=== PATIENT | female | born 1995 ===

== ENCOUNTER 2017-06-12 05:42 | Inpatient (IN) ==
[2017-06-12] MEDS ORDERED: ONDANSETRON 4 MG/2 ML VIAL IV PRN (05:54)
[2017-06-12] MEDS ORDERED: MEPERIDINE 50 MG/1 ML VIAL IV PRN (05:54)
[2017-06-12 06:26] LABS: Basophils % 0.2 % (0.0-0.8); Eosinophils # 0.1 10*3/uL (0.0-0.87); Eosinophils % 0.6 % (0.00-10.9); Hematocrit 36.6 VOL% (35.7-47.0); Hemoglobin 12.2 GM/DL (12.0-16.0); Immature Granulocytes % 0.6 %; Immature Granulocytes Absolute 0.06 #; Lymphocytes # 2.1 10*3/uL (1.4-4.0); Lymphocytes % 22.8 % (21.3-54.2); Mean Corpuscular HGB Conc 33.3 GM/DL (32-36); Mean Corpuscular Hemoglobin 27 PG (27-34); Mean Corpuscular Volume 80.3 FL (87-102); Mean Platelet Volume 12.7 FL (9.6-12.0); Monocytes # 0.5 10*3/uL (0.11-0.8); Monocytes % 5.1 % (1.7-12.7); Neutrophils # 6.6 10*3/uL (1.4-7.4); Neutrophils % 70.7 % (38.7-73.9); Platelet Count 149 T/CUMM (130-400); Red Blood Count 4.56 MC/CUMM (3.8-5.5); Red Cell Distribution Width 13.4 % (9.3-17.3); White Blood Count 9.4 T/CUMM (4-12)
[2017-06-12] MEDS: OXYTOCIN/LR 20 UNIT/1,000 ML BAG IV SCH ×2 (06:37→20:25)
[2017-06-12] MEDS: LACTATED RINGERS 1,000 ML IV SCH ×3 (06:37→13:22)
[2017-06-12 06:56] LABS: Alanine Aminotransferase 13 U/L (13-56); Albumin 2.4 G/DL (3.4-5.0); Alkaline Phosphatase 184 U/L (45-117); Aspartate Amino Transferase 14 U/L (0-37); Bilirubin,Total < 0.39 MG/DL (0.2-1.0); Blood Urea Nitrogen 11 MG/DL (7-18); Calcium 8.7 MG/DL (8.5-10.1); Glucose 105 MG/DL (74-106); Osmolality,Calculated 273.7 MOS/KG (273-304); Potassium 3.7 MMOL/L (3.5-5.1); Sodium 138 MMOL/L (136-145); Total Protein 6.8 G/DL (6.4-8.3)
[2017-06-12] MEDS: BUTORPHANOL 2 MG/ML VIAL IV PRN ×2 (09:32→12:27)
[2017-06-12] MEDS ORDERED: PROMETHAZINE 25 MG/1 ML VIAL IM ONE (09:38)
[2017-06-12] MEDS ORDERED: FAMOTIDINE 20 MG/2 ML VIAL IV ONE (09:38)
[2017-06-12] MEDS ORDERED: hydrOXYzine HCL 25 MG/1 ML VIAL IM PRN (09:38)
[2017-06-12] MEDS ORDERED: CITRIC ACID/SODIUM CITRATE 30 ML UDCUP PO ONE (09:38)
[2017-06-12] MEDS ORDERED: ePHEDrine 50 MG/ML AMP IV PRN (09:38)
[2017-06-12] MEDS ORDERED: diphenhydrAMINE 50 MG/1 ML VIAL IV PRN ×2 (09:38)
[2017-06-12] MEDS ORDERED: fentaNYL 2 MCG/ROPIV 0.2% EPID 150 ML EPIDURAL SCH (10:00)
[2017-06-12 17:05] LABS: Apearance,Urine CLEAR (Clear); Bilirubin,Urine Negative (Negative); Blood, Urine Negative (Negative); Glucose,Urine (UA) Negative (Negative); Ketones,Urine 5 mg/dL (Negative); Mucus,Urine Occasional /LPF (Occasional); Nitrite,Urine Negative (Negative); Protein,Urine Negative; RBC,Urine <1 /HPF (0-4); Urine Color Yellow (Yellow); Urine Specific Gravity 1.012 (1.001-1.035); Urine Urobilinogen < 2.0 EU/DL (0.2-1.0); WBC,Urine <1 /HPF (0-6)
[2017-06-12] MEDS ORDERED: METHYLERGONOVINE 0.2 MG/1 ML AMP ONE (21:48)
[2017-06-12 22:38] LABS: Cord Arterial Blood HCO3 24.8 MMOL/L
[2017-06-12 22:40] LABS: Cord Venous Blood HCO3 21.4 MMOL/L; Cord Venous Blood PCO2 40.5 MMHG; Cord Venous Blood PO2 37.3
[2017-06-13] MEDS ORDERED: OXYTOCIN/LR 30 UNIT/1,000 ML BAG IV ONE (00:35)
[2017-06-13] MEDS ORDERED: DIPH/TET/ACEL PERT BOOSTER VACCINE 0.5 ML VIAL IM ONE (00:49)
[2017-06-13] MEDS ORDERED: BENZOCAINE 20%/MENTHOL 0.5% SPRAY 56 GM CAN TOP PRN (00:49)
[2017-06-13] MEDS ORDERED: ACETAMINOPHEN 325 MG TABLET PO PRN (00:49)
[2017-06-13] MEDS ORDERED: WITCH HAZEL PADS 100/JAR TOP PRN (00:49)
[2017-06-13] MEDS ORDERED: RHO(D) IMMUNE GLOBULIN 300 MCG SYRINGE IM ONE (00:49)
[2017-06-13] MEDS ORDERED: BISACODYL 10 MG SUPP RECTAL PRN (00:49)
[2017-06-13] MEDS ORDERED: MEASLES/MUMPS/RUBELLA VACCINE 0.5 ML VIAL SUBCUT ONE (00:49)
[2017-06-13] MEDS ORDERED: LANOLIN 50% CREAM 0.3 OZ TUBE TOP PRN (00:49)
[2017-06-13] MEDS ORDERED: oxyCODONE/ACETAMINOPHEN 5-325 MG TABLET PO PRN (00:49)
[2017-06-13] MEDS ORDERED: ACETAMINOPHEN/CODEINE 300-30 MG TABLET PO PRN (00:49)
[2017-06-13] MEDS ORDERED: HYDROCORTISONE 2.5% RECTAL CREAM 30 GM TUBE TOP PRN (00:49)
[2017-06-13] MEDS: IBUPROFEN 800 MG TABLET PO PRN ×2 (01:02→14:49)
[2017-06-13 06:59] LABS: Basophils % 0.2 % (0.0-0.8); Eosinophils % 0.2 % (0.00-10.9); Hematocrit 30.7 VOL% (35.7-47.0); Hemoglobin 10.4 GM/DL (12.0-16.0); Immature Granulocytes % 0.5 %; Immature Granulocytes Absolute 0.06 #; Lymphocytes # 1.7 10*3/uL (1.4-4.0); Lymphocytes % 13.3 % (21.3-54.2); Mean Corpuscular HGB Conc 33.9 GM/DL (32-36); Mean Corpuscular Hemoglobin 27 PG (27-34); Mean Corpuscular Volume 78.1 FL (87-102); Mean Platelet Volume 12.8 FL (9.6-12.0); Monocytes % 7.4 % (1.7-12.7); Neutrophils # 10.1 10*3/uL (1.4-7.4); Neutrophils % 78.4 % (38.7-73.9); Platelet Count 127 T/CUMM (130-400); Red Blood Count 3.93 MC/CUMM (3.8-5.5); Red Cell Distribution Width 13.4 % (9.3-17.3); White Blood Count 12.9 T/CUMM (4-12)
[2017-06-13] MEDS: DOCUSATE SODIUM 100 MG CAPSULE PO SCH ×2 (09:11→21:28)
[2017-06-14] MEDS: IBUPROFEN 800 MG TABLET PO PRN (07:41)
[2017-06-14] MEDS: oxyCODONE/ACETAMINOPHEN 5-325 MG TABLET PO PRN (07:42)
[2017-06-14] MEDS: DOCUSATE SODIUM 100 MG CAPSULE PO SCH ×2 (08:31→21:52)
[2017-06-15] MEDS: DOCUSATE SODIUM 100 MG CAPSULE PO SCH (08:20)
[2017-06-15] MEDS: IBUPROFEN 800 MG TABLET PO PRN (08:21)
[2017-06-15] MEDS: oxyCODONE/ACETAMINOPHEN 5-325 MG TABLET PO PRN (08:23)
[2017-06-15 08:45] VITALS: BP 113/74
== END 2017-06-15 11:35 | disposition home or self-care (01) | DRG 560 ==
LOC: N.LDOUT 05:42 → N.LD 05:45 → N.OB 06-13 02:35
PROVIDERS: ADMIT Obstetrics & Gynecology; ATTEND Obstetrics & Gynecology

== ENCOUNTER 2018-06-07 16:50 | Inpatient (IN) ==
[2018-06-07] MEDS ORDERED: BUTORPHANOL 2 MG/ML VIAL IV PRN (17:24)
[2018-06-07] MEDS ORDERED: ONDANSETRON 4 MG/2 ML VIAL IV PRN (17:24)
[2018-06-07] MEDS ORDERED: LACTATED RINGERS 1,000 ML IV ONE (17:24)
[2018-06-07] MEDS ORDERED: BUTORPHANOL 2 MG/ML VIAL ONE (17:26)
[2018-06-07] MEDS ORDERED: ONDANSETRON 4 MG/2 ML VIAL ONE (17:26)
[2018-06-07 19:03] LABS: Apearance,Urine CLEAR (Clear); Bilirubin,Urine Negative (Negative); Blood, Urine Negative (Negative); Glucose,Urine (UA) Negative (Negative); Ketones,Urine Negative (Negative); Mucus,Urine Occasional /LPF (Occasional); Nitrite,Urine Negative (Negative); Protein,Urine 100 MG/DL; RBC,Urine 1 /HPF (0-4); Squamous Epithelial Cell,Urine Occasional /HPF (0-10); Urine Color Yellow (Yellow); Urine Specific Gravity 1.021 (1.001-1.035); Urine Urobilinogen < 2.0 EU/DL (0.2-1.0); WBC,Urine 1 /HPF (0-6)
[2018-06-08] MEDS ORDERED: BUTORPHANOL 2 MG/ML VIAL IV PRN (00:05)
[2018-06-08] MEDS ORDERED: MEPERIDINE 50 MG/1 ML VIAL IV PRN (00:05)
[2018-06-08] MEDS ORDERED: ONDANSETRON 4 MG/2 ML VIAL IV PRN (00:05)
[2018-06-08] MEDS ORDERED: LACTATED RINGERS 1,000 ML IV SCH ×2 (00:30→08:30)
[2018-06-08 00:45] LABS: Basophils % 0.4 % (0.0-0.8); Eosinophils # 0.1 10*3/uL (0.0-0.87); Eosinophils % 1.4 % (0.00-10.9); Hematocrit 35.1 VOL% (35.7-47.0); Hemoglobin 11.3 GM/DL (12.0-16.0); Immature Granulocytes % 0.9 %; Immature Granulocytes Absolute 0.09 #; Lymphocytes % 19.5 % (21.3-54.2); Mean Corpuscular HGB Conc 32.2 GM/DL (32-36); Mean Corpuscular Hemoglobin 26 PG (27-34); Mean Corpuscular Volume 80.5 FL (87-102); Mean Platelet Volume 12.9 FL (9.6-12.0); Monocytes # 0.8 10*3/uL (0.11-0.8); Monocytes % 7.3 % (1.7-12.7); Neutrophils # 7.3 10*3/uL (1.4-7.4); Neutrophils % 70.5 % (38.7-73.9); Platelet Count 128 T/CUMM (130-400); Red Blood Count 4.36 MC/CUMM (3.8-5.5); Red Cell Distribution Width 14.5 % (9.3-17.3); White Blood Count 10.3 T/CUMM (4-12)
[2018-06-08 01:01] LABS: INR 0.9; PT Patient Result 9.6 SECS; Partial Thromboplastin Time 29.8 SECS (0-40)
[2018-06-08 01:05] LABS: Alanine Aminotransferase 17 U/L (13-56); Albumin 2.4 G/DL (3.4-5.0); Alkaline Phosphatase 148 U/L (45-117); Aspartate Amino Transferase 18 U/L (0-37); Bilirubin,Total < 0.39 MG/DL (0.2-1.0); Blood Urea Nitrogen 10 MG/DL (7-18); Calcium 8.4 MG/DL (8.5-10.1); Glucose 81 MG/DL (74-106); Osmolality,Calculated 276.4 MOS/KG (273-304); Potassium 3.9 MMOL/L (3.5-5.1); Sodium 140 MMOL/L (136-145); Total Protein 6.7 G/DL (6.4-8.3)
[2018-06-08] MEDS ORDERED: hydrALAZINE 20 MG/1 ML VIAL IV ONE (01:06)
[2018-06-08] MEDS ORDERED: hydrALAZINE 20 MG/1 ML VIAL IV PRN (02:39)
[2018-06-08] MEDS ORDERED: OXYTOCIN/LR 20 UNIT/1,000 ML BAG IV SCH (06:00)
[2018-06-08] MEDS ORDERED: hydrOXYzine HCL 25 MG/1 ML VIAL IM PRN (08:30)
[2018-06-08] MEDS ORDERED: fentaNYL 2 MCG/ROPIV 0.2% EPID 100 ML EPIDURAL SCH (08:30)
[2018-06-08] MEDS ORDERED: NALOXONE 0.4 MG/ML VIAL IV PRN (08:30)
[2018-06-08] MEDS ORDERED: ePHEDrine 50 MG/ML AMP IV PRN (08:30)
[2018-06-08] MEDS ORDERED: ONDANSETRON 4 MG/2 ML VIAL IV ONE (08:30)
[2018-06-08] MEDS ORDERED: diphenhydrAMINE 50 MG/1 ML VIAL IV PRN ×2 (08:30)
[2018-06-08] MEDS ORDERED: CITRIC ACID/SODIUM CITRATE 30 ML UDCUP ONE (08:51)
[2018-06-08] MEDS ORDERED: LIDOCAINE 1% 50 ML VIAL ONE (10:07)
[2018-06-08] MEDS ORDERED: miSOPROStol 200 MCG TABLET ONE (10:07)
[2018-06-08] MEDS ORDERED: METHYLERGONOVINE 0.2 MG/1 ML AMP ONE (10:08)
[2018-06-08] MEDS ORDERED: ACETAMINOPHEN/CODEINE 300-30 MG TABLET PO PRN (14:02)
[2018-06-08] MEDS ORDERED: DIPH/TET/ACEL PERT BOOSTER VACCINE 0.5 ML VIAL IM ONE (14:02)
[2018-06-08] MEDS ORDERED: BENZOCAINE 20%/MENTHOL 0.5% SPRAY 56 GM CAN TOP PRN (14:02)
[2018-06-08] MEDS ORDERED: BISACODYL 10 MG SUPP RECTAL PRN (14:02)
[2018-06-08] MEDS ORDERED: RHO(D) IMMUNE GLOBULIN 300 MCG SYRINGE IM ONE (14:02)
[2018-06-08] MEDS ORDERED: MEASLES/MUMPS/RUBELLA VACCINE 0.5 ML VIAL SUBCUT ONE (14:02)
[2018-06-08] MEDS ORDERED: LANOLIN 50% CREAM 0.3 OZ TUBE TOP PRN (14:02)
[2018-06-08] MEDS ORDERED: oxyCODONE/ACETAMINOPHEN 5-325 MG TABLET PO PRN (14:02)
[2018-06-08] MEDS ORDERED: ACETAMINOPHEN 325 MG TABLET PO PRN (14:02)
[2018-06-08] MEDS ORDERED: HYDROCORTISONE 2.5% RECTAL CREAM 30 GM TUBE TOP PRN (14:02)
[2018-06-08] MEDS ORDERED: WITCH HAZEL PADS 100/JAR TOP PRN (14:02)
[2018-06-08] MEDS: IBUPROFEN 800 MG TABLET PO PRN (14:40)
[2018-06-08] MEDS: oxyCODONE/ACETAMINOPHEN 5-325 MG TABLET PO PRN (16:02)
[2018-06-08] MEDS: DOCUSATE SODIUM 100 MG CAPSULE PO SCH (20:32)
[2018-06-09] MEDS: oxyCODONE/ACETAMINOPHEN 5-325 MG TABLET PO PRN ×2 (02:06→20:19)
[2018-06-09 05:56] LABS: Basophils % 0.5 % (0.0-0.8); Eosinophils # 0.3 10*3/uL (0.0-0.87); Eosinophils % 3.2 % (0.00-10.9); Hematocrit 29.4 VOL% (35.7-47.0); Hemoglobin 9.4 GM/DL (12.0-16.0); Immature Granulocytes % 0.5 %; Immature Granulocytes Absolute 0.04 #; Lymphocytes # 2.5 10*3/uL (1.4-4.0); Lymphocytes % 29.6 % (21.3-54.2); Mean Corpuscular Hemoglobin 26 PG (27-34); Mean Corpuscular Volume 81.2 FL (87-102); Mean Platelet Volume 13.1 FL (9.6-12.0); Monocytes # 0.6 10*3/uL (0.11-0.8); Monocytes % 6.8 % (1.7-12.7); Neutrophils # 5.1 10*3/uL (1.4-7.4); Neutrophils % 59.4 % (38.7-73.9); Platelet Count 113 T/CUMM (130-400); Red Blood Count 3.62 MC/CUMM (3.8-5.5); Red Cell Distribution Width 14.6 % (9.3-17.3); White Blood Count 8.6 T/CUMM (4-12)
[2018-06-09] MEDS: IBUPROFEN 800 MG TABLET PO PRN ×2 (09:30→20:18)
[2018-06-09] MEDS: DOCUSATE SODIUM 100 MG CAPSULE PO SCH ×2 (09:30→20:19)
[2018-06-10 07:19] VITALS: BP 128/84
[2018-06-10] MEDS: DOCUSATE SODIUM 100 MG CAPSULE PO SCH (08:26)
[2018-06-10] MEDS ORDERED: FERROUS SULFATE 325 MG TABLET PO SCH (09:00)
[2018-06-10] MEDS ORDERED: INFLUENZA VIRUS VACCINE 0.5 ML SYRINGE IM ONE (09:31)
== END 2018-06-10 12:20 | disposition home or self-care (01) | DRG 560 ==
LOC: N.LDOUT 16:50 → N.LD 16:51 → N.OB 06-08 13:38
PROVIDERS: ADMIT Obstetrics & Gynecology; ATTEND Obstetrics & Gynecology